=== PATIENT | female | born 1940 | race Caucasian/White ===

== ENCOUNTER 2018-05-26 19:20 | Emergency (ER) | payer MEDICARE ==
[2018-05-26] MEDS ORDERED: ONDANSETRON HCL INJ/PF 4 MG/2 ML SDV IV ONE (20:14)
[2018-05-26] MEDS ORDERED: FENTANYL CITRATE INJ/PF 100 MCG/2 ML AMPUL IV ONE (20:14)
[2018-05-26] MEDS ORDERED: NORMAL SALINE 1000 ML 1,000 ML IV ONE ×2 (20:14→22:26)
[2018-05-26] MEDS ORDERED: LIDOCAINE 2% VISCOUS SOLN 20 ML UDCUP PO PRN (20:16)
[2018-05-26] MEDS ORDERED: SUCRALFATE 1 GM TABLET PO ONE (20:16)
[2018-05-26] MEDS ORDERED: METOCLOPRAMIDE HCL ORAL SOLN 10 MG/10 ML UDCUP PO ONE (20:16)
[2018-05-26] MEDS ORDERED: MAG HYDROX/AL HYDROX/SIMETH SUSP 30 ML UDCUP PO ONE (20:16)
[2018-05-26] MEDS ORDERED: LIDOCAINE 2% VISCOUS SOLN 20 ML UDCUP PO ONE (20:16)
[2018-05-26] MEDS ORDERED: MAG HYDROX/AL HYDROX/SIMETH SUSP 30 ML UDCUP PO PRN (20:16)
--- NOTE | 2018-05-26 20:17 | ER Document Report ---
ED Medical Screen (RME) - General Chief Complaint: Abdominal Pain Stated Complaint: ABDOMINAL PAIN, NAUSEA Time Seen by Provider: 05/26/18 20:14 Notes: 77 years old female with a history of hypothyroidism, presents today with epigastric pain since this morning which is severe in nature associated with nausea and vomited at home. The pain is centered around the epigastrium nonradiating. Denies any diarrhea or dysuria frequency urgency. Denies any constipation. Pleasant female has sharp epigastric tenderness noted. TRAVEL OUTSIDE OF THE [place] IN LAST 30 DAYS: No - Related Data Allergies/Adverse Reactions: No Known Allergies Allergy (Verified 05/26/18 20:06) Past Medical History - Social History Chew tobacco use (# tins/day): No Frequency of alcohol use: None Drug Abuse: None - Past Medical History Cardiac Medical History: Reports: Hx Hypercholesterolemia - no meds Renal/ Medical History: Denies: Hx Peritoneal Dialysis Physical Exam - Vital signs Vitals: Temp Pulse Resp BP Pulse Ox 97.9 F 75 18 126/44 H 98 05/26/18 19:46 05/26/18 19:46 05/26/18 19:46 05/26/18 19:46 05/26/18 19:46 Course - Vital Signs Vital signs: Temp Pulse Resp BP Pulse Ox 97.9 F 75 18 126/44 H 98 05/26/18 19:46 05/26/18 19:46 05/26/18 19:46 05/26/18 19:46 05/26/18 19:46 Doctor's Discharge - Discharge Referrals: LYNDA GRADY MD [Primary Care Provider] - Follow up as needed
[2018-05-26 21:06] LABS: APPEARANCE,URINE SLIGHTLY-CLOUDY; BILIRUBIN,URINE NEGATIVE (NEGATIVE); COLOR,URINE DARK YELLOW; GLUCOSE, URINE NEGATIVE (NEGATIVE); KETONES,URINE NEGATIVE (NEGATIVE); LEUKOCYTE ESTERASE,URINE NEGATIVE (NEGATIVE); NITRITE,URINE NEGATIVE (NEGATIVE); PROTEIN,URINE NEGATIVE (NEGATIVE); URINE SPECIFIC GRAVITY 1.014
[2018-05-26 21:20] LABS: HEMATOCRIT 45.8 % (36.0-47.0); HEMOGLOBIN 15.5 g/dL (12.0-15.5); MEAN CORPUSCULAR HEMOGLOBIN 31.8 pg (27.0-33.4); MEAN CORPUSCULAR HGB CONC 33.8 g/dL (32.0-36.0); MEAN CORPUSCULAR VOLUME 94 fl (80-97); PLATELET COUNT 267 10^3/uL (150-450); RED BLOOD COUNT 4.87 10^6/uL (3.72-5.28); RED CELL DISTRIBUTION WIDTH 13.6 % (11.5-14.0); WHITE BLOOD COUNT 15.4 10^3/uL (4.0-10.5)
[2018-05-26 21:39] LABS: ALANINE AMINOTRANSFERASE 152 U/L (9-52); ALBUMIN 4.8 g/dL (3.5-5.0); ALKALINE PHOSPHATASE 90 U/L (38-126); ANION GAP 15 (5-19); ASPARTATE AMINO TRANSFERASE 189 U/L (14-36); BILIRUBIN,DIRECT 0.9 mg/dL (0.0-0.4); BILIRUBIN,TOTAL 1.6 mg/dL (0.2-1.3); BLOOD UREA NITROGEN 14 mg/dL (7-20); CALCIUM 9.7 mg/dL (8.4-10.2); CARBON DIOXIDE 25 mmol/L (22-30); CHLORIDE 100 mmol/L (98-107); GLUCOSE 187 mg/dL (75-110); POTASSIUM 3.8 mmol/L (3.6-5.0); SODIUM 139.9 mmol/L (137-145); TOTAL PROTEIN 7.9 g/dL (6.3-8.2)
[2018-05-26 21:52] LABS: ABSOLUTE LYMPHOCYTES# (MANUAL) 0.3 10^3/uL (0.5-4.7); ABSOLUTE MONOCYTES # (MANUAL) 0.6 10^3/uL (0.1-1.4); ABSOLUTE NEUTROPHILS# (MANUAL) 14.3 10^3/uL (1.7-8.2); BASOPHILS % (MANUAL) 1 % (0-2); EOSINOPHILS % (MANUAL) 0 % (0-6); LYMPHOCYTES % (MANUAL) 2 % (13-45); MONOCYTES % (MANUAL) 4 % (3-13); SEGMENTED NEUTROPHILS % (MAN) 82 % (42-78); TOTAL CELLS COUNTED 100
[2018-05-26 21:53] LABS: PLATELET CLUMPS PRESENT; PLATELET COMMENT ADEQUATE; PLATELET LARGE PRESENT
[2018-05-26 21:55] LABS: RBC MORPHOLOGY COMMENT NORMO-CYTIC/CHROMIC; TOXIC VACUOLATION PRESENT
[2018-05-26 21:56] LABS: BAND NEUTROPHILS % (MANUAL) 11 % (3-5); LIPASE 19193.2 U/L (23-300)
--- NOTE | 2018-05-26 22:28 | ER Document Report ---
ED General - General Chief Complaint: Abdominal Pain Stated Complaint: ABDOMINAL PAIN, NAUSEA Time Seen by Provider: 05/26/18 20:14 Cannot obtain history due to: Dementia Notes: Patient is a 77-year-old female with a past medical history of hypercholesterolemia and dementia who presents with abdominal pain and nausea. The history is limited secondary to the patient's degree of dementia. When I initially assessed the patient check she denies having any symptoms of any kind , states that she does not know she had complained of abdominal pain earlier. The family friend at the bedside states that earlier today the patient was balled up in pain, having severe nausea but no vomiting. No history of the same. Nothing improved or worsen the symptoms. The patient has not seen her doctor regarding today's concerns. History is otherwise limited secondary to dementia. TRAVEL OUTSIDE OF THE [place] IN LAST 30 DAYS: No - Related Data Allergies/Adverse Reactions: No Known Allergies Allergy (Verified 05/26/18 20:06) Past Medical History - General Information source: Patient, Relative - Social History Smoking Status: Never Smoker Chew tobacco use (# tins/day): No Frequency of alcohol use: None Drug Abuse: None Lives with: Family Family History: Reviewed & Not Pertinent Patient has suicidal ideation: No Patient has homicidal ideation: No - Past Medical History Cardiac Medical History: Reports: Hx Hypercholesterolemia - no meds Renal/ Medical History: Denies: Hx Peritoneal Dialysis Review of Systems - Review of Systems Notes: Constitutional: Negative for fever. HENT: Negative for sore throat. Eyes: Negative for visual changes. Cardiovascular: Negative for chest pain. Respiratory: Negative for shortness of breath. Gastrointestinal: Positive for abdominal pain and nausea Genitourinary: Negative for dysuria. Musculoskeletal: Negative for back pain. Skin: Negative for rash. Neurological: Negative for headaches, weakness or numbness. 10 point ROS negative except as marked above and in HPI. Physical Exam - Vital signs Vitals: Temp Pulse Resp BP Pulse Ox 97.9 F 75 18 126/44 H 98 05/26/18 19:46 05/26/18 19:46 05/26/18 19:46 05/26/18 19:46 05/26/18 19:46 Interpretation: Normal Notes: PHYSICAL EXAMINATION: GENERAL: Well-appearing, well-nourished and in no acute distress. HEAD: Atraumatic, normocephalic. EYES: Pupils equal round and reactive to light, extraocular movements intact, sclera anicteric, conjunctiva are normal. ENT: nares patent, oropharynx clear without exudates. Moderately dry mucous membranes. NECK: Normal range of motion, supple without lymphadenopathy LUNGS: Breath sounds clear to auscultation bilaterally and equal. No wheezes rales or rhonchi. HEART: Regular rate and rhythm without murmurs ABDOMEN: Soft, mild diffuse tenderness although most focal to the epigastrium and right upper quadrant, normoactive bowel sounds. No guarding, no rebound. No masses appreciated. EXTREMITIES: Normal range of motion, no pitting or edema. No cyanosis. NEUROLOGICAL: No focal neurological deficits. Moves all extremities spontaneously and on command. PSYCH: Normal mood, normal affect. SKIN: Warm, Dry, normal turgor, no rashes or lesions noted. Course - Re-evaluation Re-evalutation: 05/26/18 22:27 Patient presents with nausea, vomiting, upper abdominal pain. She does have dementia, service provide history. Initial laboratories are notable for findings consistent with acute pink otitis. Will obtain right upper quadrant ultrasound to evaluate for possible gallstone induced pancreatitis. Patient does not consume alcohol. She does take a statin for her cholesterol which could be an alternative potential trigger. Patient is otherwise nontoxic in appearance, in no distress. 05/27/18 01:50 Labs are suggestive of a gallstone induced pancreatitis. Right upper quadrant ultrasound does confirm gallstones but no evidence of cholecystitis. Patient will require ERCP. Family has requested transfer to [facility] as we do not the capacity to perform this procedure at this time. 05/27/18 02:08 I have discussed this case with at [facility] who is excepted the patient for transfer. The patient is n.p.o., on maintenance fluids, has received Zosyn. Awaiting transport. - Vital Signs Vital signs: Temp Pulse Resp BP Pulse Ox 97.9 F 75 18 126/44 H 98 05/26/18 19:46 05/26/18 19:46 05/26/18 19:46 05/26/18 19:46 05/26/18 19:46 - Laboratory Result Diagrams: 05/26/18 20:50 05/26/18 20:50 Laboratory results interpreted by me: 1005/26/18 05/26/18 20:46 20:50 20:50 WBC 15.4 H Seg Neuts % (Manual) 82 H Band Neutrophils % 11 H Lymphocytes % (Manual) 2 L Abs Neuts (Manual) 14.3 H Abs Lymphs (Manual) 0.3 L Glucose 187 H Total Bilirubin 1.6 H Direct Bilirubin 0.9 H AST 189 H ALT 152 H Lipase 37302.2 H Urine Urobilinogen 2.0 H - Diagnostic Test Radiology reviewed: Reports reviewed Discharge - Discharge Clinical Impression: Epigastric abdominal pain, Nausea Pancreatitis Qualifiers: Chronicity: acute Pancreatitis type: biliary Acute pancreatitis complication: no infection or necrosis Qualified Code(s): K85.10 - Biliary acute pancreatitis without necrosis or infection Condition: Fair Disposition: [facility] Referrals: LYNDA GRADY MD [Primary Care Provider] - Follow up as needed
--- NOTE | 2018-05-26 23:56 | RADIOLOGY REPORT (SQ) ---
Limited abdominal ultrasound HISTORY: Pancreatitis. FINDINGS: Pancreas is within normal limits. Aorta and IVC are within normal limits. Liver is within normal limits with no biliary dilatation with CBD measuring1 to 2 mm. Right kidney does not demonstrate hydronephrosis. Gallbladder demonstrates layering calculi. No wall thickening or pericholecystic fluid. No sonographic Haider sign. Portal vein demonstrates hepatopedal flow. IMPRESSION: Cholelithiasis with no evidence for cholecystitis.
[2018-05-27] MEDS ORDERED: PIPERACILLIN/TAZOBACTAM 3.375 GM VIAL IV ONE (01:51)
[2018-05-27] MEDS ORDERED: RINGERS SOLUTION,LACTATED 1,000 ML IV ONE (01:51)
[2018-05-27] MEDS: MORPHINE SULFATE 10 MG/ML INJ IV PRN ×2 (05:05→08:19)
--- NOTE | 2018-05-27 07:58 | EKG REPORT ---
SEVERITY:- BORDERLINE ECG - SINUS RHYTHM BORDERLINE T ABNORMALITIES, INFERIOR LEADS : Confirmed by: Adan Ford MD 27-May-2018 07:57:39
[2018-05-27 08:40] VITALS: BP 119/47
--- NOTE | 2018-05-27 08:49 | ER Document Report ---
Doctor's Note Notes: 05/27/18 08:49 This woman is being transferred to [facility] for evaluation of gallstone pancreatitis. On examination she is well-appearing and hemodynamically stable. Current plan will be for this patient undergo transport, she is well-appearing and stable at this time.
[2018-05-27 13:31] LABS: PATH REVIEW PATHOLOGIST REVIEWED
== END 2018-05-27 08:55 | disposition short-term general hospital (02) ==
LOC: ER 19:20
DX: K85.10 Biliary acute pancreatitis without necrosis or infection (principal); R10.13 Epigastric pain; R11.0 Nausea; E78.00 Pure hypercholesterolemia, unspecified; F03.90 Unspecified dementia, unspecified severity, without behavioral disturbance, psychotic disturbance, mood disturbance, and anxiety
CPT/HCPCS: 93005; 99285; 96361; 96375; 96365; 96366; 36415; 83690; 85025; 80053; 81001; 76705; 93010; J3010; J3490; A9270 ×2; J2270; J2405; J7030; J7120; J2543

== ENCOUNTER → 2019-03-21 | Outpatient (CLI) | payer MEDICARE ==
--- NOTE | 2019-03-21 12:43 | RADIOLOGY REPORT (SQ) ---
EXAM DESCRIPTION: CT ABD/PELVIS WITH IV ORAL COMPLETED DATE/TIME: 03/21/2019 12:28 pm REASON FOR STUDY: R10.31 RIGHT LOWER QUADRANT PAIN R10.31 RIGHT LOWER QUADRANT PAIN COMPARISON: None. TECHNIQUE: CT scan of the abdomen and pelvis performed using helical scanning technique with dynamic intravenous contrast injection. Patient was given oral contrast. Images reviewed with lung, soft ti ssue, and bone windows. Reconstructed coronal and sagittal MPR images reviewed. Delayed images for ev aluation of the urinary system also acquired. All images stored on PACS. All CT scanners at this facility use dose modulation, iterative reconstruction, and/or weight based d osing when appropriate to reduce radiation dose to as low as reasonably achievable (ALARA). [facility]: Dose Right [facility]: CareDose [facility]: Dose Right [facility]: Teradose 4D [facility]: ShareMeme CONTRAST TYPE AND DOSE: contrast/concentration: Isovue 350.00 mg/ml; Total Contrast Delivered: 55.0 ml; Total Saline Delivered: 65.0 ml RENAL FUNCTION: Creatinine 0.5 RADIATION DOSE: CT Rad equipment meets quality standard of care and radiation dose reduction techniq ues were employed. CTDIvol: 2.7 - 3.8 mGy. DLP: 286 mGy-cm.. LIMITATIONS: None. FINDINGS: LOWER CHEST: No significant findings. No nodules or infiltrates. LIVER: Normal size. No masses. No dilated ducts. SPLEEN: Normal size. No focal lesions. PANCREAS: No masses. Vascular versus parenchymal calcifications. No adjacent inflammation or peripan creatic fluid collections. Pancreatic duct not dilated. GALLBLADDER: Surgically absent. ADRENAL GLANDS: No significant masses or asymmetry. RIGHT KIDNEY AND URETER: No solid masses. No significant calcifications. No hydronephrosis or hyd roureter. LEFT KIDNEY AND URETER: No solid masses. No significant calcifications. No hydronephrosis or hydr oureter. AORTA AND VESSELS: No aneurysm. No dissection. Renal arteries, SMA, celiac without stenosis. RETROPERITONEUM: No retroperitoneal adenopathy, hemorrhage or masses. BOWEL AND PERITONEAL CAVITY: No masses or inflammatory changes. No free fluid or peritoneal masses. APPENDIX: Not visualized. PELVIS: No mass. No free fluid. Scattered pelvic phleboliths. Unremarkable partially distended uri nary bladder. ABDOMINAL WALL: No masses. No hernias. BONES: No acute bony abnormality. No suspicious osseous lesions. Schmorl's node within the L3 super ior endplate. OTHER: Partially evaluated asymmetric soft tissue in skin thickening within the right breast. IMPRESSION: 1. No evidence of acute intra-abdominal/pelvic process. 2. Partially evaluated asymmetric soft tissue and skin thickening within the right breast. Recommen d correlation with mammographic history. TECHNICAL DOCUMENTATION: JOB ID: [id number] Quality ID # [id number]: Final reports with documentation of one or more dose reduction techniques (e.g., Au tomated exposure control, adjustment of the mA and/or kV according to patient size, use of iterative reconstruction technique) 2010 [employer] All Rights Reserved Reading location - IP/workstation name: [email or web address]
== END ==
LOC: RAD 09:41
PROVIDERS: ATTEND Surgery
DX: R10.31 Right lower quadrant pain (principal)
CPT/HCPCS: 74177; 82565